=== PATIENT | male | born 1990 | race Caucasian/White ===

== ENCOUNTER 2016-09-21 17:01 | Emergency (ER) | payer OTHER ==
[2016-09-21 17:12] VITALS: TEMP 98.1
--- NOTE | 2016-09-21 17:29 | EDPHY ---
H & P Stated Complaint: fall skiing wednesday/knee to nose hit head with helmet/now mejia HPI/ROS: CHIEF COMPLAINT: skiing accident, headache HISTORY OF PRESENT ILLNESS: patient was skiing at [place] on Wednesday when he went off a zabrina that was greater than or equal to 10 feet. He said he struck the ground awkwardly, striking his head with his knee. He was wearing a helmet. No LOC. He did sustain a nosebleed that was stopped with mild pressure. He was evaluated there on the slopes but was not transported and had no imaging. Since then he has had increasing confusion and difficulty completing his tasks. This is mild to moderate. It is worsened spontaneously. No improvement. He also has a headache that started today around 3:00 p.m.. This is primarily in the occiput and radiates up into the frontal region. Mild to moderate. No neck pain or stiffness. No fever or chills. No other associated complaints or modifying factors. No use of blood thinners. REVIEW OF SYSTEMS: Ten systems reviewed and are negative unless otherwise noted in the HPI EXAMINATION General Appearance: Alert, no distress Head: normocephalic, atraumatic . No Ratliff sign. No raccoon eyes. No depression or outward signs of trauma. Eyes: Pupils equal and round, no conjunctival pallor or injection . EOMs intact. ENT, Mouth: Mucous membranes moist . Uvula midline. Neck: Normal inspection, supple, non-tender . Painless range of motion all planes. Cardiovascular: Regular rate and rhythm . No murmur. Pulses intact distally. Gastrointestinal: Abdomen is soft and nontender Back: non-tender, no bony abnormalities Neurological: A&Ox4. Cranial nerves 2-12 grossly intact. No focal deficits. Strength is 5/5 in all limbs. No pronator drift. No dysmetria. Normal mini- mental status. Skin: Warm and dry, no rash , lacerations, contusions or abrasions. Extremities: Nontender, no pedal edema Psychiatric: Mood and affect normal DIFFERENTIAL DIAGNOSES: Including but not limited to Postconcussion syndrome, closed head injury, headache, confusion, intracranial hemorrhage, skull fracture, subdural hematoma MDM: 5:25 p.m. fall while skiing on Wednesday afternoon. This was a fall greater than 10 feet. It closed head injury and no LOC at the time, but now complains of a moderate to severe headache. He also has some confusion and difficulty completing tasks. He has a nonfocal, normal neuro examination. Given his headache and his Dangerous mechanism, I have ordered a CT scan of the head. 6:02 p.m. notified by radiologist of the CT scan of the head. Findings are within normal limits. I have re-evaluated the patient he is resting comfortably in no acute distress. He will be discharged home with a concussion booklet, follow up with our concussion specialist, and return to the emergency department precautions. He is comfortable with this plan and discharged home stable condition. justification for CT scan of the head: Fall from greater than 10 feet which qualifies as dangerous mechanism; Moderate to severe headache. SUPERVISION: This patient was independently evaluated without the aide of supervising physician. Source: Patient Exam Limitations: No limitations - Personal History Current Tetanus/Diphtheria Vaccine: Yes Tetanus Vaccine Date: unknown - Medical/Surgical History Hx Asthma: No Hx Chronic Respiratory Disease: No Hx Diabetes: No Hx Cardiac Disease: No Hx Renal Disease: No Hx Cirrhosis: No Hx Alcoholism: No Hx HIV/AIDS: No Hx Splenectomy or Spleen Trauma: No Other PMH: "HEART PROBLEMS" FROM WORKOUT SUPPLEMENT. POSSIBLE HEP C EXPOSURE/ RECOVERING ADDICT/ETOH. PSH; dental, - Social History Smoking Status: Former smoker Constitutional: Initial Vital Signs Temperature (C) 98.1 F 09/21/16 17:10 Heart Rate 63 09/21/16 17:10 Respiratory Rate 17 09/21/16 17:10 Blood Pressure 135/61 H 09/21/16 17:10 O2 Sat (%) 96 09/21/16 17:10 O2 Delivery Mode Room Air Allergies/Adverse Reactions: Penicillins Allergy (Verified 09/21/16 17:09) Home Medications: Medication Instructions Recorded Acetaminophen/Codeine 300/30Mg 1 each PO Q6 PRN #15 tab 09/21/16 [Tylenol #3 (*)] Departure - Departure Disposition: Home, Routine, Self-Care Clinical Impression: Post-concussion headache Headache Qualifiers: Headache type: unspecified Headache chronicity pattern: acute headache Intractability: not intractable Qualified Code(s): R51 - Headache Skiing accident Qualifiers: Encounter type: initial encounter Qualified Code(s): V00.328A - Other snow-ski accident, initial encounter Condition: Good Instructions: Acetaminophen/Codeine (By mouth), Concussion (ED), Head Injury ( ED) Additional Instructions: Follow-up with Dr. Alva. Return to ER for worsening headache, vomiting x2, confusion or unilateral changes Referrals: Willy Gray MD [Primary Care Provider] - As per Instructions Anya Alva MD [Medical Doctor] - As per Instructions Prescriptions: Acetaminophen/Codeine 300/30Mg [Tylenol #3 (*)] 1 each PO Q6 PRN #15 tab PRN Reason: Pain, Mild
[2016-09-21 18:39] VITALS: BP 108/66; PULSE 59; RESP 16; O2SAT 95
== END 2016-09-21 18:39 | disposition home or self-care (01) ==
DX: S09.90XA Unspecified injury of head, initial encounter (principal); F07.81 Postconcussional syndrome; Z87.891 Personal history of nicotine dependence; V00.328A Other snow-ski accident, initial encounter; Y99.8 Other external cause status; Y93.23 Activity, snow (alpine) (downhill) skiing, snowboarding, sledding, tobogganing and snow tubing

== ENCOUNTER 2017-01-03 11:36 | Emergency (ER) | payer OTHER ==
[2017-01-03 11:44] VITALS: RESP 18
[2017-01-03] MEDS ORDERED: RABIES IMMUNE GLOBULIN 300 UNIT/2 ML VIAL IM ONE (12:52)
[2017-01-03] MEDS ORDERED: RABIES VACC, HUMAN DIPLOID/PF 2.5 UNIT VIAL (RABAVERT) IM ONE (13:01)
--- NOTE | 2017-01-03 14:17 | EDPHY ---
H & P Time Seen by Provider: 01/03/17 12:24 HPI/ROS: CHIEF COMPLAINT: Cat scratch bilateral hands HISTORY OF PRESENT ILLNESS: 26-year-old male presents to the emergency department with cat scratch possible bite to both hands. Patient states 2 days ago he had a wild cat that he was around near his home in [place]. States that the cat was acting very "strange". He states that the cat was rolling in the dirt in the wound come close to him and was "rubbing his teeth on his hands ". He noted itching to his hands and noticed that they were swelling up almost immediately. He denies difficulty breathing or swallowing. Denies headache. No fevers or chills. He states that the cat did not look like it prolonged anyone. There is no collar or other identifying markers. REVIEW OF SYSTEMS: Constitutional: No fever, no chills. Eyes: No double or blurry vision. ENT: No sore throat. Respiratory: No cough, no shortness of breath. Cardiac: No chest pain. Gastrointestinal: No abdominal pain, vomiting or diarrhea. Genitourinary: No dysuria. Musculoskeletal: No neck or back pain. Skin: No rashes. Neurological: No headache. Past Medical/Surgical History: Previous substance abuse Social History: Single Smoking Status: Former smoker Physical Exam: General Appearance: Alert, no distress. Afebrile. Eyes: Pupils equal and round. Extraocular motions are all intact. ENT: Mouth: Mucous membranes moist. Respiratory: No wheezing, rhonchi, or rales, lungs are clear to auscultation. Cardiovascular: Regular rate and rhythm. Gastrointestinal: Abdomen is soft and nontender, no masses, no rebound or guarding, bowel sounds normal. Neurological: Alert and oriented x 3, cranial nerves II through XII grossly intact Skin: 2 small healing possible puncture wounds to the base of both index fingers to the lateral aspect. There is no surrounding redness or warmth or signs of infection. No evidence of retained foreign body. Warm and dry, no rashes. Musculoskeletal: Nontender to palpate along the cervical, thoracic or lumbar spine. Neck is supple. Extremities: Full range of motion and no peripheral edema. Psychiatric: Patient is oriented X 3, there is no agitation. Constitutional: Initial Vital Signs Temperature (C) 36.6 C 01/03/17 11:41 Heart Rate 69 01/03/17 11:41 Respiratory Rate 18 01/03/17 11:41 Blood Pressure 109/58 L 01/03/17 11:41 O2 Sat (%) 18 L 01/03/17 11:41 O2 Delivery Mode Room Air Allergies/Adverse Reactions: ciprofloxacin [From Cipro] Allergy (Verified 01/03/17 13:00) Penicillins Allergy (Verified 01/03/17 11:41) Home Medications: Medication Instructions Recorded Clindamycin 450 mg PO TID #63 cap 01/03/17 Doxycycline Hyclate 100 mg PO BID #14 tablet 01/03/17 Medical Decision Making ED Course/Re-evaluation: 26-year-old male presents to the emergency department after he was possibly scratched or bit by a feral cat. Because of the strange behavior of the CT, I spoke with the on-call infectious disease doctor, Dr. Cameron Sheffield, who recommended that rabies immunoglobulin vaccine be initiated in the emergency department. They have had positive rapid animals after being exposed to rabbit skunks. They will follow up with him on Wednesday at [facility]. He was given rabies immunoglobulin and rabies vaccine in the emergency department. Because of his penicillin allergy, he was started on doxycycline and clindamycin. Patient was given wound care precautions. Differential Diagnosis: Including but not limited to cellulitis, infected animal bite, possible rabies exposure - Data Points Medications Given: Discontinued Medications Rabies Immune Globulin (Imogam Rabies Ht 2ml) 1,400 unit IM .ONCE ONE Stop: 01/03/17 12:53 Last Admin: 01/03/17 14:11 Dose: 1,400 unit Rabies Vaccine Human Diploid Cell (Rabavert) 2.5 unit IM .ONCE ONE Stop: 01/03/17 13:02 Last Admin: 01/03/17 13:09 Dose: 2.5 unit Departure - Departure Disposition: Home, Routine, Self-Care Clinical Impression: Possible rabies exposure Cat scratch of hand Qualifiers: Encounter type: initial encounter Laterality: unspecified laterality Qualified Code(s): S60.519A - Abrasion of unspecified hand, initial encounter Condition: Good Instructions: Animal Bite (ED), Acute Wounds (ED) Additional Instructions: Doxycycline twice daily for 1 week to prevent infection. Clindamycin 450mg three times daily for one week. You were given rabies immunoglobulin and 1st dose of rabies vaccine today in the emergency department. You will need to continue rabies vaccine dosed as discussed on day 3, Wednesday (01/06/17) then day 7, Wednesday (01/10/17) and day 14 , Wednesday (01/17/17). Call to arrange follow-up appointment with provider at [facility], infectious Disease. Tell them you were seen in the emergency department and we spoke with Dr. Cameron Sheffield while you were here. Referrals: [facility] (ED,. [Edm Groups for Call Sched] - As per Instructions (Call tomorrow morning to arrange follow-up appointment for Wednesday for rabies vaccine dose #2) Prescriptions: Clindamycin 450 mg PO TID #63 cap Doxycycline Hyclate 100 mg PO BID #14 tablet
[2017-01-03 14:55] VITALS: BP 119/78; PULSE 54; TEMP 98.4; O2SAT 97
== END 2017-01-03 14:54 | disposition home or self-care (01) ==
PROC: 3E0234Z Introduction of Serum, Toxoid and Vaccine into Muscle, Percutaneous Approach (ICD-10-PCS; principal; 2017-01-03)
DX: S60.511A Abrasion of right hand, initial encounter (principal); S60.512A Abrasion of left hand, initial encounter; Z23 Encounter for immunization; Z87.891 Personal history of nicotine dependence; W55.03XA Scratched by cat, initial encounter; Y92.009 Unspecified place in unspecified non-institutional (private) residence as the place of occurrence of the external cause